=== PATIENT | female | born 1995 | race Caucasian/White ===

== ENCOUNTER → 2019-01-14 13:58 | Observation (INO) ==
[2019-01-14 11:08] LABS: Bilirubin,Urine Negative (Negative); Blood,Urine Small (Negative); Clarity,Urine Cloudy (Clear); Color,Urine Yellow (Yellow); Glucose,Urine (UA) Normal (Normal); Ketones,Urine Negative (Negative); Leukocyte Esterase,Urine Large (Negative); Nitrite,Urine Negative (Negative); PH,Urine 6.5 pH Units (5.0-8.0); Protein,Urine Trace mg/dL (Neg-Trace); Specific Gravity,Urine 1.014 (1.010-1.025); Urobilinogen,Urine Normal (Normal)
[2019-01-14 11:11] LABS: Bacteria,Urine Moderate per hpf (None-Few); Hyaline Casts,Urine None Seen per lpf (None-Few); Squamous Epithelial Cell,Urine Many per lpf (None-Few); WBC,Urine 30-50 per hpf (0-3)
[2019-01-14 11:14] LABS: Amphetamine Screen,Urine Negative ng/mL (Cutoff=1000); Barbiturate Screen,Urine Negative ng/mL (Cutoff=200); Benzodiazepines Screen,Urine Negative ng/mL (Cutoff=200); Cannabinoid Screen,Urine Negative ng/mL (Cutoff = 50); Cocaine Screen,Urine Negative ng/mL (Cutoff= 300); Opiate Screen,Urine Negative ng/mL (Cutoff=300); Phencyclidine Screen,Urine Negative ng/mL (Cutoff=25)
--- NOTE | 2019-01-14 13:29 | Discharge Summary ---
Date of Encounter: 01/14/19 Time of Encounter: 13:27 - Discharge Diagnosis (1) 34 weeks gestation of Priority: Primary Status: Acute Comments: Admit for observation due to decreased movement, vaginal bleeding. (2) Decreased movement Priority: Secondary Status: Acute Comments: Reactive FHR while here. Qualifiers: Fetus number: single or unspecified fetus Trimester: third trimester Qualified Code(s): O36.8130 - Decreased movements, third trimester, not applicable or unspecified (3) Vaginal bleeding in Priority: Secondary Status: Acute Comments: Patient reports some spotting with wiping this morning. SSE reveals no blood in vaginal vault. UA shows blood. Will send for culture. 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 - Discharge Medications Prescriptions: No Action Vit Calc,Iron,Folic [ Vitamins] 1 tab PO DAILY Home Medications: Vit Calc,Iron,Folic [ Vitamins] 1 tab PO DAILY 12/26/15 [History] Allergies/Adverse Reactions: Allergy/AdvReac Type Severity Reaction Status Date / Time No Known Allergies Allergy Verified 12/26/15 14:55 Data Procedures and tests throughout hospitalization: Laboratory Tests 01/14/19 01/14/19 10:59 10:59 Urine Color Yellow Urine Clarity Cloudy A Urine pH 6.5 Ur Specific Maria Stein 1.014 Urine Protein Trace Urine Glucose (UA) Normal Urine Ketones Negative Urine Blood Small H Urine Nitrite Negative Urine Bilirubin Negative Urine Urobilinogen Normal Ur Leukocyte Esterase Large H Urine Microscopic RBC 5-15 H Urine Microscopic WBC 30-50 H Ur Squamous Epith Cells Many H Urine Bacteria Moderate H Hyaline Casts None Seen Ur Culture Indicated? NO. A Urine Opiates Screen Negative Ur Barbiturates Screen Negative Ur Phencyclidine Scrn Negative Ur Amphetamines Screen Negative U Benzodiazepines Scrn Negative Urine Cocaine Screen Negative U Marijuana (THC) Screen Negative Ur Drug Screen Interp See Below Labs on day of discharge: Labs from last 24 hours 04/22/19 04/22/19 10:59 10:59 Urine Color Yellow Urine Clarity Cloudy A Urine pH 6.5 Ur Specific Maria Stein 1.014 Urine Protein Trace Urine Glucose (UA) Normal Urine Ketones Negative Urine Blood Small H Urine Nitrite Negative Urine Bilirubin Negative Urine Urobilinogen Normal Ur Leukocyte Esterase Large H Urine Microscopic RBC 5-15 H Urine Microscopic WBC 30-50 H Ur Squamous Epith Cells Many H Urine Bacteria Moderate H Hyaline Casts None Seen Ur Culture Indicated? NO. A Urine Opiates Screen Negative Ur Barbiturates Screen Negative Ur Phencyclidine Scrn Negative Ur Amphetamines Screen Negative U Benzodiazepines Scrn Negative Urine Cocaine Screen Negative U Marijuana (THC) Screen Negative Ur Drug Screen Interp See Below Date of admission: 01/14/19 10:21 Primary care physician: PCP NONE Discharging clinician: Nikky Key Anticipated date of discharge: 01/14/19 - Patient Status Disposition: Home, Self-Care Condition: Good Functional capacity at discharge: independent ambulation Overall status at discharge: patient is progressing back to baseline - Discharge Instructions Follow Up With: NONE,PCP [Primary Care Provider] - - Diet and Activity Activity: resume usual activities as tolerated Diet: regular diet 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 Patient thought maybe the bleeding was rectal but unsure. She denies contractions, and fluid leakage. She has had a reactive heart tracing while here and no vaginal bleeding has been visualized. Sterile speculum exam was completed with no bleeding noted in vagina. She did have a moderate amount of thick yellow-green mucus, some mucus very adherent to the vaginal wall. Vaginosis panel was collected and results are pending. She has had one contraction on the monitor but is not feeling any contractions. Her UA did have some blood, WBC and epithelial cells but appears contaminated. Culture ordered. Patient has an appointment with Dr. Martinez in 2 days for routine care and is scheduled for repeat on February 20. Time Attestation: Total time spent providing and/or coordinating discharge services: Time Spent: Less than 30 minutes Exam - Constitutional General appearance IM: A&O X 3, pleasant, no acute distress, answers questions appropriately - Respiratory Respiratory exam: Present: CTAB - Cardiovascular Cardiovascular exam IM: Present: RRR, +S1, +S2 - GI/Abdominal GI/Abdominal exam IM: normal bowel sounds, soft - Rectal Rectal exam: deferred - External exam: normal external exam - Extremities Exam Extremities exam IM: Present: full ROM, normal capillary refill, normal inspection - Neurological Exam Neurological exam: alert, normal gait, oriented X3 - VTE Reasons for not Prescribing Prophylaxis: Treatment not Indicated - Low risk for VTE
[2019-01-14 14:23] LABS: Candida DNA DETECTED (Not Detect); Gardnerella DNA DETECTED (Not Detect); Trichomonas DNA Not Detected (Not Detect)
== END | disposition home or self-care (01) ==
LOC: 1NENULAB
PROVIDERS: ADMIT Registered Nurse; ATTEND Registered Nurse

== ENCOUNTER → 2019-01-28 15:35 | Observation (INO) ==
--- NOTE | 2019-01-28 14:04 | OB/GYN Progress Note ---
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 Patient reports barely and trickle s lindsey. Patient does report intercourse on Monday. Patient denies VB. Patient reports +FM. Patient denies any urinary symptoms. Patient's is complicated by a uterus didelphus with vaginal septum and history of c/s. Patient receives care with Dr. Martinez. Antepartum ROS: loss of fluid, movement normal, contractions (occasional ), no vaginal bleeding Objective - Exam FHR: auscultation normal, category 1 FHR comments: 145 bpm moderate variability +15x15 accels no decels noted. Cat. 1 tracing Irregular contractions noted. Auscultation: bilateral: normal Abdomen: Present: normal appearance, soft, gravid Cervical dilation: closed Cervix effacement: thick Comments: Speculum exam: Small amount of watery discharge noted, Nitrazine and fern test negative.
--- NOTE | 2019-01-28 15:34 | OB/GYN Progress Note ---
Date of Encounter: 01/28/19 Time of Encounter: 15:32 - Assessment and Plan (1) and not yet delivered in third trimester Current Visit: Yes Status: Acute (2) Shanti albicans infection Current Visit: Yes Status: Acute (3) 36 weeks gestation of Current Visit: Yes Status: Acute will treat with terconazole (4) Vaginal discharge during in third trimester Current Visit: Yes Status: Acute Subjective - Subjective Interval history: Patient states she had a little bit more drainage vaginally and she arrived. She states she has been having contractions on-and-off for some time but nothing that she can time. Patient states that she was treated for yeast infection last week. Initial evaluation showed nitrazine was negative pooling was negative ferning was negative. We did decide to do a pelvic ultrasound to do an JONNA to see if she had any fluid around the baby. Bedside ultrasound does confirm vertex presentation JONNA was 10.5 movement noted. Antepartum ROS: loss of fluid, contractions Objective - Exam FHR: category 1 FHR comments: Heart tones 140s and reactive. Irritability noted Abdomen: Present: normal appearance, soft, gravid (Bedside ultrasound confirmed vertex presentation JONNA approximately 10.5 movement noted.) Cervical dilation: closed Cervix effacement: thick station: -3
[2019-01-28 15:38] LABS: Amphetamine Screen,Urine Negative ng/mL (Cutoff=1000); Barbiturate Screen,Urine Negative ng/mL (Cutoff=200); Benzodiazepines Screen,Urine Negative ng/mL (Cutoff=200); Cannabinoid Screen,Urine Negative ng/mL (Cutoff = 50); Cocaine Screen,Urine Negative ng/mL (Cutoff= 300); Opiate Screen,Urine Negative ng/mL (Cutoff=300); Phencyclidine Screen,Urine Negative ng/mL (Cutoff=25)
== END | disposition home or self-care (01) ==
LOC: 1NENULAB
PROVIDERS: ADMIT Advanced Practice Midwife; ATTEND Advanced Practice Midwife

== ENCOUNTER → 2019-02-16 23:35 | Observation (INO) ==
[2019-02-16 22:47] LABS: Amphetamine Screen,Urine Negative ng/mL (Cutoff=1000); Barbiturate Screen,Urine Negative ng/mL (Cutoff=200); Benzodiazepines Screen,Urine Negative ng/mL (Cutoff=200); Cannabinoid Screen,Urine Negative ng/mL (Cutoff = 50); Cocaine Screen,Urine Negative ng/mL (Cutoff= 300); Opiate Screen,Urine Negative ng/mL (Cutoff=300); Phencyclidine Screen,Urine Negative ng/mL (Cutoff=25)
--- NOTE | 2019-02-16 23:41 | Discharge Summary ---
Date of Encounter: 02/16/19 Time of Encounter: 23:41 - Discharge Diagnosis (1) 38 weeks gestation of Priority: Primary Status: Acute Comments: admitted for observation false labor SVE: Closed per RN (2) NST (non-stress test) reactive Priority: Secondary Status: Acute Comments: Reactive NST: FHR baseline 135 bpm moderate variability +15x15 accels no decels noted. No contractions noted. Cat. 1 tracing - Discharge Medications Prescriptions: No Action Vit Calc,Iron,Folic [ Vitamins] 1 tab PO DAILY Home Medications: Vit Calc,Iron,Folic [ Vitamins] 1 tab PO DAILY 12/26/15 [History] Allergies/Adverse Reactions: Allergy/AdvReac Type Severity Reaction Status Date / Time No Known Allergies Allergy Verified 12/26/15 14:55 Data Procedures and tests throughout hospitalization: Laboratory Tests 02/16/19 22:25 Urine Opiates Screen Negative Ur Barbiturates Screen Negative Ur Phencyclidine Scrn Negative Ur Amphetamines Screen Negative U Benzodiazepines Scrn Negative Urine Cocaine Screen Negative U Marijuana (THC) Screen Negative Ur Drug Screen Interp See Below Labs on day of discharge: Labs from last 24 hours 02/16/19 22:25 Urine Opiates Screen Negative Ur Barbiturates Screen Negative Ur Phencyclidine Scrn Negative Ur Amphetamines Screen Negative U Benzodiazepines Scrn Negative Urine Cocaine Screen Negative U Marijuana (THC) Screen Negative Ur Drug Screen Interp See Below Date of admission: 02/16/19 22:16 Primary care physician: Rosalind Rock Discharging clinician: Kemi Marroquin Anticipated date of discharge: 02/16/19 - Patient Status Disposition: Home, Self-Care Condition: Good Functional capacity at discharge: independent ambulation - Discharge Instructions Follow Up With: Kemi Marroquin CNM [Primary Care Provider] - Additional Instructions: LABOR AND DELIVERY DISCHARGE INSTRUCTIONS Signs and Symptoms to be Reported to your Doctor Immediately: * Sudden gush, continuous or intermittent lead of fluid from vagina (note the time of gush and color of fluid) * Onset of bright red vaginal bleeding with or without pain (if you had a vaginal exam during this visit you may notice some dark red spotting. This is normal.) * Contractions that are 5 minutes apart (from the beginning of one contraction to the beginning of the next) and last 45-60 seonds; contractions that you can no longer walk, talk or laugh through. * A change in the baby's activity. This could be an increase or decrease in activity. * Severe headache which does not go away with tylenol. * Sudden swelling in the face, hands, arms and/or legs. * Upper abdominal pain - sometimes associated with heartburn or nausea and is not relieved by Maalox, Mylanta or Tums. * Kick Counts __ One hour after a meal, lay down on one side in a quiet place. Count the number of time the baby moves during an hour. 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 Patient reports she was at the [employer] and walking around all day. Patient reports good movement. Time Attestation: Total time spent providing and/or coordinating discharge services: Time Spent: Less than 30 minutes Exam - Other Additional findings: Patient seen and assessed by RN FHR 135 bpm moderate variability +15x15 accels no decels noted. No contractions noted. Cat. 1 tracing - VTE Reasons for not Prescribing Prophylaxis: Treatment not Indicated - Low risk for VTE
== END | disposition home or self-care (01) ==
LOC: 1NENULAB
PROVIDERS: ADMIT Advanced Practice Midwife; ATTEND Advanced Practice Midwife

== ENCOUNTER 2019-02-17 03:52 | Inpatient (IN) ==
[~2019-02-17 03:52] MED LIST: Azithromycin 500 MG in D5% in Water 250 ML IVPB ONE; CeFAZolin Syr 3,000MG/30 ML 3,000 MG/30 ML SYRINGE IVPB ONE; Famotidine 20 MG/2 ML VIAL IVP PRN; Metoclopramide 10 MG/2 ML VIAL IVP PRN; Naloxone 0.4 MG/ML INJ IVP PRN; Ondansetron 4 MG/2 ML VIAL IVP PRN; Ringers Solution, Lactated 1,000 ML IVC ONE; Ringers Solution, Lactated 1,000 ML IVC SCH
--- NOTE | 2019-02-17 04:02 | OB/GYN History & Physical ---
Date of Encounter: 02/17/19 Time of Encounter: 03:59 Assessment and Plan (1) Previous section complicating Current visit: Yes Status: Acute Patient will be scheduled for a repeat low transverse section. (2) 38 weeks gestation of Current visit: No Status: Acute (3) and not yet delivered in third trimester Current visit: No Status: Acute (4) Uterus didelphys in Current visit: No Status: Chronic Qualifiers: Trimester: third trimester Qualified Code(s): O34.593 - Maternal care for other abnormalities of gravid uterus, third trimester; Q51.28 - Other doubling of uterus, other specified (5) Active labor at term Current visit: No Status: Acute History of Present Illness HPI: Ms. Anglin is a 23 year old female 2 para 1 at 38-6/7 weeks who presented to labor and delivery with complaint of contractions. She states that approximately 1999 last night she started having contractions did come to labor and delivery where she was observed had made no cervical change and was discharged home. Patient states when she got home she became more uncomfortable called with advise her to come back in on reevaluation patient was now 3 cm. Patient is a repeat section secondary to didelphys uterus. Patient de nies any leaking of fluid and no vaginal bleeding. She states her contractions are getting more uncomfortable. Patient had originally consented to having a tubal ligation however she has changed her mind she does not want a tubal ligation at this time. She states she will follow up with her primary FOCUSER a later date if she wants it done. 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, uterine didelphus with vaginal septum Psychiatric history: no psych history - Past Surgical History Surgical History: (x1) - Social History Smoking Status: Never smoker Smokeless Tobacco Status: No Alcohol use: none Drug use: none Occupational status: employed Current living situation: Home - Independent Activity Level: Independent ambulation Recent Out of Country Travel Within the Last 8 Weeks: No Exposure or Possible Exposure to Illness During Travel: No - Family History Mother Living Status: Still Living Hx Family Cardiac Disorders: No Hx Family Respiratory Disorders: No Hx Family Cancer: No Hx Family GI Disorders: No Hx Family Genitourinary Disorders: No Hx Family Endocrine Disorder: No Hx Family Musculoskeletal Disorders: No Hx Family Neuromuscular Disorders: No Hx Family Neurologic Disorders: No Hx Family HEENT Disorders: No Hx Family Autoimmune Disorders: No Hx Family Reproductive Disorders: No Hx Family Psychosocial Disorders: Yes (anxiety depression) Hx Family Medical Disorders: No - Additional Family History Additional family history: Family history noncontributory Obstetrical History - Pregnancies : 2 Para: 1 Term: 1 : 0 Ab's: 0 Livin Medications and Allergies Vit Calc,Iron,Folic [ Vitamins] 1 tab PO DAILY 12/26/15 [History] Allergy/AdvReac Type Severity Reaction Status Date / Time No Known Allergies Allergy Verified 12/26/15 14:55 Review of System OB All systems PM: reviewed and no additional remarkable complaints except as stated - Menstruation Menstruation: other (Contractions every 3-5 minutes) Exam - Constitutional Constitutional: well developed, well nourished, moderate distress, morbidly obese - HEENT HEENT: EOMI, PERRL, Mucus Membranes Moist - Neck Neck exam: full ROM - Lungs Respiratory exam: CTAB - Cardiovascular Cardiovascular exam: RRR - Abdomen Abdomen: Present: bowel sounds normal, gravid ( heart tones 140s reactive contractions every 2-3 minutes) - Cervix Dilation: 3 Effacement: 80 Station: -3 Results All other labs normal. - VTE Reasons for not Prescribing Prophylaxis: Treatment not Indicated - Low risk for VTE
[2019-02-17 04:04] LABS: Basophils % 0.1 %; Eosinophils # 0.1 K/mcL (0.0-0.6); Eosinophils % 0.3 %; Hematocrit 36.6 % (35.3-44.9); Hemoglobin 12.4 g/dL (11.5-15.4); Immature Granulocytes % 0.7 % (0-4); Immature Platelets 2.7 % (1.1-6.1); Lymphocytes # 1.9 K/mcL (0.6-4.6); Lymphocytes % 12.8 %; Mean Corpuscular HGB Conc 33.9 g/dL (31.6-35.5); Mean Corpuscular Volume 88.4 fL (83.0-100.0); Mean Platelet Volume 9.6 fL (9.4-12.4); Monocytes # 0.8 K/mcL (0.0-1.3); Monocytes % 5.6 %; Neutrophils # 11.8 K/mcL (1.6-8.9); Platelet Count 246 K/mcL (140-400); Red Blood Count 4.14 M/mcL (3.82-4.97); Red Cell Distribution Width 13.2 % (11.5-14.5); Segmented Neutrophils % 80.5 %
--- NOTE | 2019-02-17 04:10 | Anesthesia Evaluation PreOp ---
Date of Encounter: 02/17/19 Time of Encounter: 04:08 - Past History Planned Operation: Spinal/Repeat section Cardiac History: Denies any Significant Hx Pulmonary History: Denies Any Significant HX LOG OPERATIONS COORDINATOR History: Denies Any Significant HX Other Medical History: Other (hx Uterine Didelphus (with single kidney formation)) Anesthesia History: No Prior Anesthetic Complications, Past Anesthesia (Teeth extraction as child) : Yes Alcohol Use: none Drug use: none Medications and Allergies Vit Calc,Iron,Folic [ Vitamins] 1 tab PO DAILY 12/26/15 [History] Allergy/AdvReac Type Severity Reaction Status Date / Time No Known Allergies Allergy Verified 12/26/15 14:55 - Meds/Allergy Pre-op Review Medications Reviewed: Yes Allergies Reviewed: Yes Beta Blockers on Current Med List: No Anesthesia Results - Labs 02/17/19 03:50 Anesthesia Exam BP 140/63 P 126 R 20 T 98.9 Height: 5'5" Weight: 120kg NPO (# of Hours): 8 Pain Scale: 6 Pain Scale Used: Numeric (1 - 10) - HEENT Pupil (Motor): Pupils equal Mallampati: II Teeth: Normal Oral Opening: Greater than 3 - LOG OPERATIONS COORDINATOR LOC: Oriented LOG OPERATIONS COORDINATOR Motor: Normal RUE, Normal LUE, Normal RLE, Normal LLE, Normal Face LOG OPERATIONS COORDINATOR Sensory: Normal: RUE, LUE, RLE, LLE, Face - Cardiac Rhythm: Regular Murmur: None JVD: No Carotid Bruit: No - Pulmonary Breath Sounds: bilateral Clear Respiratory Effort: Symmetrical Anesthesia Assess/Plan ASA Score: 2 Level of consciousness: Cooperative Anesthetic Plan: Spinal Autologous Blood: Yes Monitoring Plan: Standard Monitors Recovery Plan: PACU
[2019-02-17] MEDS ORDERED: *HR* Morphine Sulfate/PF 10 MG/10 ML AMPUL ONE (04:29)
[2019-02-17] MEDS ORDERED: Ondansetron 4 MG/2 ML VIAL ONE (04:42)
[2019-02-17] MEDS ORDERED: Dexamethasone 4 MG/ML VIAL ONE (04:42)
[2019-02-17] MEDS ORDERED: *HR* Phenylephrine 10 MG/ML VIAL ONE (04:42)
[2019-02-17] MEDS ORDERED: *HR* Oxytocin 10 UNIT/ML VIAL IM ONE (04:59)
--- NOTE | 2019-02-17 05:09 | Anesthesia Procedures ---
Date of Encounter: 02/17/19 Time of Encounter: 04:35 Procedures: Anesthesia - Epidural/Spinal Patient ID/Chart reviewed: Yes Patient examined: Yes OB Eval: Gestational age: 38.6 OB Eval: : 2 OB Eval: Hx Para: 1 OB Eval: Dilated at (cm): 3 OB Eval: Contractions: Non-stressed pattern Consent Obtained: Yes Supplemental Oxygen: None/Room Air Site Prep: Aseptic Technique, Sterile prep and drape, Povidone-Iodine 1% Patient position: upright Local Anesthetic: Lidocaine 1% Amount of Local Anesthetic used: 3 Interspace Used: L3-L4 Blood: No CSF: Yes Paresthesia: No Spinal Needle Gauge: 25 Spinal Dose: Bupivicaine 0.75% 1.6ml Duramorph 300mcg Procedure: Intrathecal dose administered 1st pass in upright position. Positive CSF with aspiration. VSS throughout. Supine for section. Vitals + FHT's: See anesthesia record
--- NOTE | 2019-02-17 05:43 | OB/GYN Procedure Note ---
Section - Date of procedure: 02/17/19 Preop diagnosis: other (Intrauterine at 38 and 6 was weeks, previous section 1, active labor, uterine didelphys) Post-op diagnosis: same (With subserosal fibroids) Procedure: repeat low transverse Surgeon: John Finley Blood Loss: 500 Was there an pastry assistant present: No Senior Research Scientist: Chandler Stern Anesthesia Type: Spinal section complications: none Disposition: L&D Recovery Room Specimens: Cord blood - Infant (s) Infant A Infant Delivery Date: 02/17/19 Delivery Time: 04:57 Presentation: vertex Position: ROP Route of delivery: other ( section) Gender: Male Viability: Viable Pounds: 8 Ounces: 11 Gram Weight: 3.935 kg at 1 minute: 7 at 5 minutes: 8 Specimens collected: cord blood Placenta: spontaneous Cord: 3 umbilical vessels - Narrative Narrative: Patient is a 23-year-old 2 para 1 at 38-6/7 weeks who presented to labor and delivery in active labor. Patient states at approximately 8 PM yesterday she started gamaliel did come to labor and delivery she was having contractions but there was no cervical change. She was discharged home she states she got more uncomfortable they come back at this time she was 3 cm. Patient is a previous section and was scheduled for later in the week. Patient is a known uterine didelphys reason why she had the initial . Patient had signed tubal papers however she did not want a tubal ligation at this time. Because patient is making cervical change gamaliel every 2 minutes section was called. Procedure: Patient was taken to the operating room where spinal anesthesia was found be adequate. She is placed in the dorsal supine position with leftward tilt prepped and draped in usual fashion. Timeout was then obtained. A Pfannenstiel incision was made with a scalpel, carried down through the underlying tissue to fascia was identified. Fascia was nicked in midline exten ded laterally with the Buck scissors. The superior and inferior edges of the fascia grasped tented up and muscles were then dissected off the underlying muscles. Rectus muscles were in the midline parietal peritoneum was identified tented up and entered sharply. Patient was noted to have some omental adhesions these were taken down at this time. Bladder blade was inserted the vesicouterine peritoneum was identified tented up and entered sharply. This is extended laterally. Were unable to dissected bladder off to low because of some scarring percentages go little bit higher with her incision. The low segment was incised with a scalpel and extended laterally with digital manipulation. It is noted this time there was no fluid around the baby. The infant was in an right occiput posterior presentation head was then delivered followed by the . Cord was clamped and cut infant was handed off to waiting pediatric team. Cord blood was collected and the placenta was delivered spontaneously. Uterus was exteriorized cleaned of all clots and debris and the lower uterine segment was closed using 0 Vicryl in a running locking stitch by a 2 layer closure. Good hemostasis was noted. Patient was noted to have 3 fibroids on the uterus one on the right side of the left uterine Measuring Approximately 2 X 2 Centimeters She Had One on the Fundus of the Uterus Also Measuring Approximately 2 X 2 Centimeters and a Small Intramural Fibroid Approximately 1.5 x 1.5 Cm Posteriorly. At 3 Were on the Left Uterine Horn. The Right Uterine Horn Was without Any Pathology Was Approximately 8-10 Cm. Incision to Going to the Serosal Surface of the Right Uterine Horn but We Were Able to Reapproximate It. Both Ovaries Were Noted to Be Normal the Right Fallopian Tube Did Attach to the Right Horn and Left to the Left One. No Other Pathology Was Seen. Uterus Was Returned to the Abdomen and Gutters Were Cleaned of All Clots and Debris and Copiously Irrigated with No Active Bleeding. The Rectus Muscles Were Brought Together in the Midline by 2 [id number] Sutures Then the Fascia Was Closed Using a #1 Stratafix in a running stitch and the skin was closed using a 4-0 Vicryl in a subcuticular manner. All needles lap sponge counts were correct 3 she did receive preoperative antibiotics. Patient was taken to the recovery room in stable condition will be observed 2 hours before being taken floor.
[2019-02-17] MEDS ORDERED: Ketorolac 30 MG/ML VIAL IVP ONE (06:11)
[2019-02-17] MEDS ORDERED: *HR* Nalbuphine 10 MG/ML AMPUL IV PRN (06:11)
[2019-02-17] MEDS ORDERED: *HR* HYDROmorphone (PF) 1 MG/ML SYRINGE IVP PRN (06:11)
[2019-02-17] MEDS ORDERED: *HR* Promethazine 25 MG/ML VIAL IVP PRN (06:11)
[2019-02-17] MEDS ORDERED: Ondansetron 4 MG/2 ML VIAL IVP ONE (06:11)
[2019-02-17] MEDS ORDERED: *HR* Meperidine 25 MG/ML SYRINGE IVP PRN (06:11)
[2019-02-17] MEDS ORDERED: Metoclopramide 10 MG/2 ML VIAL IVP PRN (08:01)
[2019-02-17] MEDS ORDERED: Sennosides 8.6 MG TABLET PO PRN (08:01)
[2019-02-17] MEDS ORDERED: Simethicone 80 MG TAB.CHEW PO PRN (08:01)
[2019-02-17] MEDS ORDERED: Oxytocin 20 units/ LR 1000 mL 20 UNIT/1,000 ML BAG IVC SCH ×2 (08:01)
[2019-02-17] MEDS ORDERED: Ondansetron 4 MG/2 ML VIAL IVP PRN (08:01)
[2019-02-17] MEDS ORDERED: Ringers Solution, Lactated 1,000 ML IVC SCH (08:01)
[2019-02-17] MEDS ORDERED: *HR* OxyCODONE/APAP 5/325 TABLET PO PRN (08:01)
[2019-02-17] MEDS ORDERED: NON-FORMULARY MEDICATION 1 EACH EACH (Prenatal Vit Calc,Iron,Folic [Prenatal Vitamins] 1 T PO SCH (09:00)
--- NOTE | 2019-02-17 10:20 | Anesthesia Evaluation Post Op ---
Date of Encounter: 02/17/19 Time of Encounter: 10:19 - Vital Signs Vital Signs: Vital Signs/O2 Sat, Most Current Temp Pulse Resp BP Pulse Ox 98.6 F 89 12 106/68 96 02/17/19 08:09 02/17/19 08:09 02/17/19 08:09 02/17/19 08:09 02/17/19 08:09 - Lungs Lungs: Clear Ascult./Percussion - Airway Airway: Non-obstructed - Cardiovascular Regular Rate - Mental Status Mental Status: Alert & Oriented, Answers Appropriately - Pain Pain Scale: 4 - Nausea Vomiting Nausea Vomiting: Not Present - Hydration Hydration: Tolerates oral liquids, Mercedes catheter - Discharge PostOp Status: Transfer Patient to floor
[2019-02-17] MEDS: Ibuprofen 600 MG TABLET PO PRN (21:47)
[2019-02-17] MEDS: cephALEXin 500 MG CAPSULE PO SCH (21:47)
[2019-02-18] MEDS: Prenatal Vit/FA 1 EACH TABLET PO SCH (08:58)
[2019-02-18] MEDS: cephALEXin 500 MG CAPSULE PO SCH ×2 (08:59→20:35)
[2019-02-18] MEDS: Ibuprofen 600 MG TABLET PO PRN ×2 (09:00→17:19)
[2019-02-18] MEDS: Azithromycin 250 MG TABLET PO SCH (09:00)
--- NOTE | 2019-02-18 09:16 | OB/GYN Progress Note ---
Date of Encounter: 02/18/19 Time of Encounter: 09:14 - Assessment and Plan (1) Previous section complicating Current Visit: Yes Status: Acute Patient will be scheduled for a repeat low transverse section. 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 She has been ambulating tolerating diet and nausea and vomiting. Baby is doing well in the room with mom. Did recommend patient ambulated and if stable tomorrow will discharge home. Patient reports: appetite normal, voiding normally, pain well controlled, ambulating normally : doing well Objective - Vital Signs Latest vital signs: Vital Signs Temp Pulse Resp BP Pulse Ox 02/18/19 08:42 97.9 F 80 14 95/68 96 02/18/19 05:05 98.1 F 95 15 100/68 95 02/17/19 19:20 97.9 F 96 16 102/64 94 02/17/19 14:48 97.7 F 92 16 94/60 92 02/17/19 11:45 98.7 F 100 16 118/52 95 02/17/19 10:02 98.3 F 89 16 104/55 95 Intake and Output 02/17/19 02/18/19 02/18/19 23:59 07:59 15:59 Output Total 1450 / 1450 450 / 850 400 / 850 Balance -1450 / -1450 -450 / -850 -400 / -850 Output: Urine 1000 / 1000 400 / 400 Catheter 450 / 450 450 / 450 Other: Weight 117.027 kg Patient Weight 02/18/19 23:59 Weight 117.027 kg - Exam Chest: Normal S1, Normal S2 Extremities: Present: normal Abdomen: Present: normal appearance, soft Incision: Present: normal, dry, intact, dressed Uterus: Present: normal, firm Fundal Height: 17
[2019-02-18 13:09] LABS: Basophils % 0.2 %; Eosinophils % 0.4 %; Hematocrit 33.4 % (35.3-44.9); Immature Granulocytes % 0.6 % (0-4); Lymphocytes # 1.8 K/mcL (0.6-4.6); Lymphocytes % 16.8 %; Mean Corpuscular HGB Conc 32.9 g/dL (31.6-35.5); Mean Corpuscular Hemoglobin 30.1 pg (28.0-33.3); Mean Corpuscular Volume 91.3 fL (83.0-100.0); Mean Platelet Volume 9.6 fL (9.4-12.4); Monocytes # 0.7 K/mcL (0.0-1.3); Monocytes % 6.2 %; Neutrophils # 7.9 K/mcL (1.6-8.9); Platelet Count 211 K/mcL (140-400); Red Blood Count 3.66 M/mcL (3.82-4.97); Red Cell Distribution Width 13.6 % (11.5-14.5); Segmented Neutrophils % 75.8 %
[2019-02-19] MEDS: Ibuprofen 600 MG TABLET PO PRN ×2 (06:03→11:59)
[2019-02-19] MEDS: Azithromycin 250 MG TABLET PO SCH ×2 (08:09→08:12)
[2019-02-19] MEDS: Prenatal Vit/FA 1 EACH TABLET PO SCH ×2 (08:09→08:12)
[2019-02-19] MEDS: cephALEXin 500 MG CAPSULE PO SCH ×2 (08:09→08:11)
[2019-02-19 09:38] VITALS: BP 112/69
--- NOTE | 2019-02-19 10:58 | Discharge Summary ---
Date of Encounter: 02/19/19 Time of Encounter: 10:56 - Discharge Diagnosis (1) Status post repeat low transverse section Priority: Secondary Status: Acute Comments: Meeting daily milestones as expected. Bleeding minimal, no large clots noted. Pain controlled with prescribed medication. Tolerating diet. Urinating without difficulty. Passing gas and had BM. Ambulating without difficulty. Plan for discharge today. - Discharge Medications Prescriptions: New Ibuprofen [Motrin] 600 mg PO Q6HR PRN #40 tablet PRN Reason: Cramping Docusate [Colace] 100 mg PO BID #60 capsule Oxycodone HCl/Acetaminophen [Percocet 5-325 mg Tablet] 1 each PO Q6H PRN 5 Days #20 tablet PRN Reason: Moderate Pain Continued Vit Calc,Iron,Folic [ Vitamins] 1 tab PO DAILY Home Medications: Vit Calc,Iron,Folic [ Vitamins] 1 tab PO DAILY 12/26/15 [History] Docusate [Colace] 100 mg PO BID #60 capsule 02/19/19 [Rx] Ibuprofen [Motrin] 600 mg PO Q6HR PRN #40 tablet 02/19/19 [Rx] Oxycodone HCl/Acetaminophen [Percocet 5-325 mg Tablet] 1 each PO Q6H PRN 5 Days #20 tablet 02/19/19 [Rx] Allergies/Adverse Reactions: Allergy/AdvReac Type Severity Reaction Status Date / Time No Known Allergies Allergy Verified 12/26/15 14:55 Data Procedures and tests throughout hospitalization: Laboratory Tests 02/17/19 02/18/19 03:50 12:50 WBC 14.7 H 10.4 RBC 4.14 3.66 L Hgb 12.4 11.0 L Hct 36.6 33.4 L MCV 88.4 91.3 MCH 30.0 30.1 MCHC 33.9 32.9 RDW 13.2 13.6 Plt Count 246 211 MPV 9.6 9.6 Immature Gran % 0.7 0.6 Seg Neutrophils % 80.5 75.8 Lymphocytes % 12.8 16.8 Monocytes % 5.6 6.2 Eosinophils % 0.3 0.4 Basophils % 0.1 0.2 Neutrophils # 11.8 H 7.9 Lymphocytes # 1.9 1.8 Monocytes # 0.8 0.7 Eosinophils # 0.1 0.0 Basophils # 0.0 0.0 Immature Plt Fraction 2.7 Labs on day of discharge: Labs from last 24 hours 02/18/19 12:50 WBC 10.4 RBC 3.66 L Hgb 11.0 L Hct 33.4 L MCV 91.3 MCH 30.1 MCHC 32.9 RDW 13.6 Plt Count 211 MPV 9.6 Immature Gran % 0.6 Seg Neutrophils % 75.8 Lymphocytes % 16.8 Monocytes % 6.2 Eosinophils % 0.4 Basophils % 0.2 Neutrophils # 7.9 Lymphocytes # 1.8 Monocytes # 0.7 Eosinophils # 0.0 Basophils # 0.0 Date of admission: 02/17/19 03:52 Primary care physician: PCP NONE Discharging clinician: Sandy Swanson Anticipated date of discharge: 02/19/19 - Patient Status Disposition: Home, Self-Care Condition: Good Functional capacity at discharge: independent ambulation Overall status at discharge: patient is progressing back to baseline - Discharge Instructions Follow Up With: NONE,PCP [Primary Care Provider] - - Diet and Activity Activity: increase activity as tolerated Diet: advance to your usual diet Hospital Course Reason for admission: section Delivery: section Episiotomy: none Laceration: none Other procedures: none complications: none [place] baby: male Hospital course: - Date of procedure: 02/17/19 Preop diagnosis: other (Intrauterine at 38 and 6 was weeks, previous section 1, active labor, uterine didelphys) Post-op diagnosis: same (With subserosal fibroids) Procedure: repeat low transverse Surgeon: John Fowler Quantitated Blood Loss: 500 Was there an lead dental assistant present: Tyra Truck Leasing Manager: Chandler Stern Anesthesia Type: Spinal section complications: none Disposition: L&D Recovery Room Specimens: Cord blood - Infant (s) A Delivery Date: 02/17/19 Delivery Time: 04:57 Presentation: vertex Position: ROP Route of delivery: other ( section) Gender: Male Viability: Viable Pounds: 8 Ounces: 11 Gram Weight: 3.935 kg at 1 minute: 7 at 5 minutes: 8 Specimens collected: cord blood Placenta: spontaneous Cord: 3 umbilical vessels - Narrative Narrative: Patient is a 23-year-old 2 para 1 at 38-6/7 weeks who presented to labor and delivery in active labor. Patient states at approximately 8 PM yesterday she started gamaliel did come to labor and delivery she was having contractions but there was no cervical change. She was discharged home she states she got more uncomfortable they come back at this time she was 3 cm. Patient is a previous section and was scheduled for later in the week. Patient is a known uterine didelphys reason why she had the initial . Patient had signed tubal papers however she did not want a tubal ligation at this time. Because patient is making cervical change gamaliel every 2 minutes section was called. Procedure: Patient was taken to the operating room where spinal anesthesia was found be adequate. She is placed in the dorsal supine position with leftward tilt prepped and draped in usual fashion. Timeout was then obtained. A Pfannenstiel incision was made with a scalpel, carried down through the underlying tissue to fascia was identified. Fascia was nicked in midline extended laterally with the Buck scissors. The superior and inferior edges of the fascia grasped tented up and muscles were then dissected off the underlying muscles. Rectus muscles were in the midline parietal peritoneum was identified tented up and entered sharply. Patient was noted to have some omental adhesions these were taken down at this time. Bladder blade was inserted the vesicouterine peritoneum was identified tented up and entered sharply. This is extended laterally. Were unable to dissected bladder off to low because of some scarring percentages go little bit higher with her incision. The low segment was incised with a scalpel and extended laterally with digital manipulation. It is noted this time there was no fluid around the baby. The infant was in an right occiput posterior presentation head was then delivered followed by the . Cord was clamped and cut was handed off to waiting pediatric team. Cord blood was collected and the placenta was delivered spontaneously. Uterus was exteriorized cleaned of all clots and debris and the lower uterine segment was closed using 0 Vicryl in a running locking stitch by a 2 layer closure. Good hemostasis was noted. Patient was noted to have 3 fibroids on the uterus one on the right side of the left uterine Measuring Approximately 2 X 2 Centimeters She Had One on the Fundus of the Uterus Also Measuring Approximately 2 X 2 Centimeters and a Small Intramural Fibroid Approximately 1.5 x 1.5 Cm Posteriorly. At 3 Were on the Left Uterine Horn. The Right Uterine Horn Was without Any Pathology Was Approximately 8-10 Cm. Incision to Going to the Serosal Surface of the Right Uterine Horn but We Were Able to Reapproximate It. Both Ovaries Were Noted to Be Normal the Right Fallopian Tube Did Attach to the Right Horn and Left to the Left One. No Other Pathology Was Seen. Uterus Was Returned to the Abdomen and Gutters Were Cleaned of All Clots and Debris and Copiously Irrigated with No Active Bleeding. The Rectus Muscles Were Brought Together in the Midline by 2 [id number]-[id number] Sutures Then the Fascia Was Closed Using a #1 Stratafix in a running stitch and the skin was closed using a 4-0 Vicryl in a subcuticular manner. All needles lap sponge counts were correct 3 she did receive preoperative antibiotics. Patient was taken to the recovery room in stable condition will be observed 2 hours before being taken floor. Time Attestation: Total time spent providing and/or coordinating discharge services: - VTE Reasons for not Prescribing Prophylaxis: Treatment not Indicated - Low risk for VTE Documentation of Mechanical Device: Intermittent pneumatic compression device - Attending Attestation I have seen this patient and agree with her assessment. MICHELLE Montes Exam - Constitutional Vitals: Temp Pulse Resp BP Pulse Ox 97.9 F 95 16 112/69 94 02/19/19 09:38 02/19/19 09:38 02/19/19 09:38 02/19/19 09:38 02/18/19 20:00 General appearance IM: A&O X 3, pleasant, no acute distress - Respiratory Respiratory exam: Present: CTAB. Absent: respiratory distress, wheezes - Cardiovascular Cardiovascular exam IM: Present: RRR, +S1, +S2. Absent: diastolic murmur, systolic murmur - GI/Abdominal GI/Abdominal exam IM: normal bowel sounds, soft Incision: normal, dry - Uterine Tone: Firm Uterus Position: 3 Fingers Below Umbilicus - Extremities Exam Extremities exam IM: Present: pedal edema. Absent: calf tenderness - Neurological Exam Neurological exam: no focal deficits - Psychiatric Additional comments: Mood and affect appropriate
== END 2019-02-19 13:20 | disposition home or self-care (01) | DRG 787 ==
LOC: 1NENULAB → 1NENUOBS 08:03
PROVIDERS: ADMIT Advanced Practice Midwife; ATTEND Obstetrics & Gynecology